=== PATIENT | female | born 1970 | race Caucasian/White ===

== ENCOUNTER 2018-11-12 18:05 | Emergency (ER) | payer OTHER ==
[~2018-11-12] VITALS: Ht 154.9 cm; Wt 66.7 kg
[2018-11-12 18:36] VITALS: Ht 154.9 cm; Wt 66.7 kg
[2018-11-12 23:37] LABS: UA SPECIFIC GRAVITY <=1.005 (1.005-1.035); microscopic required? YES; urine erythrocyte 1+ (NEGATIVE)
[2018-11-13 00:33] LABS: CALCIUM 8.6 mg/dL (8.5-10.1); CHLORIDE SERUM 103 mmol/L (98-107); CREATININE SERUM 0.5 mg/dL (0.6-1.0); GFR1 > 60 mL/min; GLUCOSE SERUM 107 mg/dL (74-106); POTASSIUM SERUM 4.2 mmol/L (3.5-5.1); SODIUM SERUM 139 mmol/L (136-145)
[2018-11-13 00:38] LABS: ALBUMIN 3.6 g/dL (3.4-5.0); ALKALINE PHOSPHATASE 80 U/L (46-116); ALT/SGPT 37 U/L (14-59); AST/SGOT 24 U/L (15-37); BASOPHIL % 0 % (0-2); BILIRUBIN TOTAL 0.5 mg/dL (0.20-1.00); LIPASE 112 IU/L (73-393); PLATELET COUNT 229 x10^3mcL (130-400); RED CELL DISTRIBUTION WIDTH 13.7 % (11.5-14.5); TOTAL PROTEIN, SERUM 6.3 g/dL (6.4-8.2)
[2018-11-13 01:24] VITALS: BP 96/54
== END 2018-11-13 01:24 | disposition home or self-care (01) ==
LOC: ED 18:05
PROVIDERS: Emergency Medicine
DX: R11.2 Nausea with vomiting, unspecified (principal); R53.1 Weakness
CPT/HCPCS: J1885; J2405; J7030